=== PATIENT | female | born 1965 ===

== ENCOUNTER → 2019-01-09 21:17 | Outpatient (REF) | payer OTHER, SELFPAY ==
[2019-01-09 22:27] LABS: Add Manual Diff / Slide Review NO; Basophils Absolute Auto 0 /uL (0-100); Basophils Percent Auto 0.3 % (0-2); Eosinophils Absolute Auto 0 /uL (0-450); Eosinophils Percent Auto 0.9 % (2-4); Hematocrit 39.5 % (36-46); Lymphocytes Absolute Auto 1800 /uL (1100-4500); Lymphocytes Percent Auto 31.5 % (25-40); Mean Corpuscular HGB Conc 32.9 % (30-36); Mean Corpuscular Volume 94.1 fL (80-100); Monocytes Absolute Auto 400 /uL (0-900); Monocytes Percent Auto 6.4 % (3-14); Neutrophils Absolute Auto 3500 /uL (1500-7000); Neutrophils Percent Auto 60.9 % (50-75); Platelet Count 264 X10^3/uL (150-400); Red Cell Distribution Width 13.6 % (11.6-14.8); White Blood Cell Count 5.7 X10^3/uL (4.5-11.0)
[2019-01-09 22:46] LABS: Alanine Aminotransferase 29 IU/L (9-52); Albumin 4.6 g/dL (3.5-5.0); Albumin Globulin Ratio 1.8 (1.0-2.8); Alkaline Phosphatase 48 U/L (38-126); Aspartate Aminotransferase 32 IU/L (14-36); BUN Creatinine Ratio 13.8 (6-22); Bilirubin Total 0.4 mg/dL (0.2-1.3); Blood Urea Nitrogen 11 mg/dL (7-17); Calcium 9.1 mg/dL (8.4-10.2); Carbon Dioxide 26 mmol/L (22-32); Chloride 101 mmol/L (98-107); Estimated Glomerular Filt Rate > 60.0 mL/min (>60); Globulin 2.6 g/dL (1.7-4.1); Glucose 89 mg/dL (70-100); Potassium 4.9 mmol/L (3.4-5.1); Sodium 138 mmol/L (137-145); Total Protein 7.2 g/dL (6.3-8.2)
[2019-01-09 23:22] LABS: Ferritin 11.3 ng/mL (11.1-264)
[2019-01-10 01:01] LABS: Free T4, Direct Thyroxine 0.88 ng/dL (0.78-2.19)
[2019-01-10 01:15] LABS: Thyroid Stimulating Hormone 1.51 uIU/mL (0.47-4.68)
[2019-01-10 13:09] LABS: HEMOLYSIS < 15 (0-50)
[2019-01-12 15:03] LABS: Anti Thyroglobulin Antibody 602 IU/mL (< 2); Thyroid Peroxidase Antibodies 33 IU/mL (< 9)
[2019-01-12 16:06] LABS: Progesterone < 0.5 ng/mL
[2019-01-12 16:10] LABS: Estradiol 43 pg/mL
[2019-01-13 18:59] LABS: Estrogen 147.6 pg/mL
== END ==
LOC: LAB 21:17
PROVIDERS: Visit Provider Family Medicine
DX: Z13.89 Encounter for screening for other disorder (principal); N95.1 Menopausal and female climacteric states; R53.83 Other fatigue; R68.82 Decreased libido
CPT/HCPCS: 36415; 80053; 82627; 82670; 82672; 82728; 83001; 83002; 84144; 84402; 84403; 84439; 84443; 85025; 86376; 86800

== ENCOUNTER → 2019-02-16 21:13 | Outpatient (ROUT) | payer OTHER, SELFPAY ==
[2019-02-17 01:54] LABS: Free T4, Direct Thyroxine 1.08 ng/dL (0.78-2.19)
[2019-02-17 02:08] LABS: Thyroid Stimulating Hormone 0.37 uIU/mL (0.47-4.68)
== END ==
PROVIDERS: Visit Provider Family Medicine
DX: E06.3 Autoimmune thyroiditis (principal); N95.1 Menopausal and female climacteric states; R53.83 Other fatigue
CPT/HCPCS: 36415; 84439; 84443